=== PATIENT | female | born 1980 | race Caucasian/White ===

== ENCOUNTER → 2019-12-01 12:43 | Outpatient (CLI) | payer BC | END | disposition home or self-care (01) | LOC: D.US 12:43 | PROVIDERS: ATTEND Family Medicine | DX: E04.1 Nontoxic single thyroid nodule (principal) ==

== ENCOUNTER 2020-01-18 13:43 | Observation (INO) | payer BC ==
[~2020-01-18] VITALS: Ht 175.3 cm; Wt 127.3 kg
[2020-02-11] MEDS ORDERED: FENOFIBRATE160 MG PO (10:06)
[2020-02-11] MEDS ORDERED: TOPROL XL200 MG PO (10:08)
--- NOTE | 2020-02-11 13:39 | HP ---
PATIENT: INEZ BURCIAGA MEDICAL RECORD: [id number] ACCOUNT: [id number] LOCATION:[facility] : 76 ADMISSION DATE: 02/14/20 PCP: LALA IZQUIERDO MD HISTORY AND PHYSICAL EXAMINATION HISTORY OF PRESENT ILLNESS: Ms. Burciaga is a 39-year-old female with a solitary right sided 6 cm thyroid nodule. She has been admitted for a total thyroidectomy. PAST MEDICAL HISTORY: Includes hypertension. PAST SURGICAL HISTORY: Includes C-sections, bladder surgery. CURRENT MEDICATIONS: Metoprolol, fenofibrate. ALLERGIES: SULFA. PHYSICAL EXAMINATION: GENERAL: She is healthy-appearing. FACE: Normal, symmetric, no lesions. EYES: Conjunctivae normal. EARS: Canals and TMs are normal. NOSE: No mass, polyps or drainage. ORAL CAVITY AND OROPHARYNX: Tongue protrudes in midline. Pharynx normal. NECK: She has a large smooth right thyroid nodule 6 cm. CHEST: Clear. CARDIOVASCULAR: Regular rate and rhythm, no murmur. EXTREMITIES: Normal. LABORATORY AND DIAGNOSTIC DATA: Ultrasound shows 6 cm solitary thyroid nodule. Her TSH is 1.26. IMPRESSION: Dominant right thyroid nodule. PLAN: Total thyroidectomy. TRANSINT:[id number] Voice Confirmation ID: [id number] DOCUMENT ID: [id number] BAR KNOTT MD at 1339 CC: [id number] DICTATION DATE: 02/10/20 1101 ENVIRONMENTAL SERVICES AIDE: 02/10/20 1303 [id number] [place] [id number]
[2020-02-14] VITALS (12 sets, daily range): BP systolic 123–145; BP diastolic 68–86; Ht 175.3 cm; Wt 127.3 kg
[2020-02-14 09:37] LABS: HEMATOCRIT 39.2 % (36.0-48.0); HEMOGLOBIN 12.4 g/dL (12-16); MCH 26.8 pg (26.0-34.0); MCHC 31.6 g/dL (31.0-37.0); MCV 84.8 fL (80.0-100.0); MEAN PLATELET VOLUME 9.3 fL (7.4-10.4); RBC 4.62 10x6/uL (4.00-5.40); WBC 10.9 10x3/uL (4.8-10.8)
[2020-02-14 10:26] LABS: HCG URINE NEGATIVE (NEGATIVE)
--- NOTE | 2020-02-14 17:43 | NUR ---
PT ARRIVEXD TO FLOOR VIA BED FROM SX. ALERT AND ORIENTED. SPOUSE AT BEDSIDE. RIGHT FA 20G IV SL. O2 AT 2L VIA NC. VS STABLE. THROAT INCISION INTACT WITH STERI STRIPS AND RAFI DRAIN HAS MINIMAL BLOODY DRAINAGE. PT STATES SHE HAS NO FURTHER NEEDS AT THIS TIME. BED LOW. CL IN REACH. RN TO DO ADMISSION ASSESSMENT. MED REC AND HX COMPLETED.
[2020-02-15 00:51] VITALS: BP 104/54
[2020-02-15 06:16] VITALS: BP 96/49
[2020-02-15 08:45] VITALS: BP 120/71
--- NOTE | 2020-02-15 11:13 | NUR ---
DID NOT GIVE MEDICATIONS, PT TOOK HERS FROM HOME. ASSESSMENT PERFORMED AT THIS TIME. PT IS UPRIGHT IN BED. DENIES ANY NEEDS. BED IN LOWEST POSITION, BED RAILS X2, CALL LIGHT WITHIN REACH. WILL CONTINUE TO MONITOR.
[2020-02-15 12:53] VITALS: BP 139/80
--- NOTE | 2020-02-15 14:00 | NUR ---
PT SIGNED ALL NECESSARY PAPERWORK. IV REMOVED FROM RIGHT FOREARM, CATHER TIP INTACT. 2X2'S AND TAPE PLACED OVER SITE. TOELRATED WELL. PT IS ESCORTED OUT BY SPOUSE. DECLINED NEEDING A WHEEL CHAIR.
--- NOTE | 2020-02-15 15:55 | OP ---
PATIENT NAME: INEZ WILLIAM MEDICAL RECORD: [id number] :76 LOCATION:[id number] ADMISSION DATE:02/14/20 SURGEON: CORTEZ KNOTT MD DATE OF OPERATION: 02/14/2020 PREOPERATIVE DIAGNOSIS: Solitary right thyroid nodule greater than 6 cm in size. POSTOPERATIVE DIAGNOSIS: Solitary right thyroid nodule greater than 6 cm in size. PROCEDURE: Total thyroidectomy. SURGEON: Cortez Knott MD ANESTHESIA: General orotracheal. BLOOD LOSS: Less than 20 cc. SPECIMENS: Right and left thyroid lobe separately. DRAINS: Round RAFI through a separate stab incision inferior to the wound. COMPLICATIONS: None. DISPOSITION: Recovery stable. FROZEN SECTION: Follicular neoplasm. PROCEDURE NOTE: She was brought to the operating room and placed in supine position, sedated and intubated by anesthesia. She was positioned, prepped and draped in usual fashion for thyroidectomy. The skin was injected with a total of 0.5 mL of 1% lidocaine with 1:100,000 epinephrine. A horizontal incision was made with a 15 blade roughly alf between cricoid and the sternum. This was taken down with a cautery through the platysma. Flaps were elevated superiorly and inferiorly, 4 separate 2-0 silk stick ties were placed at each corner of the incision. The strap muscles were in the midline, divided superiorly and inferiorly. The thyroid was exposed really large right thyroid nodule. It was a solitary nodule. It was displacing in the trachea slightly to the left as well as the strap musculature. The straps were dissected off. [employer] retractors were used inferiorly and superiorly to expose a large thyroid nodule. Fascia was dissected off inferiorly. The gland was dissected out of some small veins and fascia were divided. Some small clip form block maker was used as well as some 3-0 silk ties. The inferior parathyroid was identified and preserved. Recurrent laryngeal nerve was identified and preserved. The nodule was reflected superiorly somewhat and then went up bilaterally, dividing the middle thyroid vein and tied with silk ties and then the superior pole was let down dissecting out in the pedicle and multiple clips and 2-0 ties were used and this allowed rotation of the gland medially over the trachea and preserve the superior parathyroid gland and dissected towards the trachea through Hinojosa's ligament, preserving both parathyroids recurrent laryngeal nerve and to the isthmus, which was quite small actually. Then that was tied off with a 2-0 silk tie and the specimen was sent for frozen, returned follicular neoplasm. It was large and solitary in nature. The total thyroidectomy was performed as planned. The left thyroid was exposed easily dissecting the straps off. It was quite OPERATIVE REPORT [id number] INEZ WILLIAM small, dissected inferiorly. I preserve the parathyroid gland and superiorly took down the superior pedicle very easily with just a single tie and dissected the superior parathyroid away easily as well, reflected the gland medially, identified the recurrent laryngeal nerve and dissected the gland off the right at Hinojosa's ligament there and over across to the midline, taking the isthmus as well. This was sent for permanent only. The wound was irrigated clean. There was no bleeding at all. A drain was placed through a separate stab incision inferior to the wound. The strap muscles were loosely approximated with interrupted 3-0 Vicryl. The platysma layer was closed with interrupted 3-0 Vicryl. The head was lifted and the skin was closed with a running 5-0 subcuticular Prolene. Steri-Strips and Mastisol were applied. A 2-0 nylon drain stitch was applied. She was awakened, extubated, and transported to recovery in good condition. Normal voice. TRANSINT:[id number] Voice Confirmation ID: [id number] DOCUMENT ID: [id number] CORTEZ KNOTT MD at 1555 CC: [id number] DICTATION DATE: 02/14/20 1726 FIELD TRAINING MANAGER: 02/15/20 0323 [facility] [id number] [place] [address]
[2020-02-15] MEDS ORDERED: HYDROCODON-ACE1 EAC7 PO (16:06)
== END 2020-02-15 16:00 | disposition home or self-care (01) ==
LOC: D.SDCHOLD 02-14 08:45 → D.MS 02-14 09:09 → D.SDCHOLD 02-14 09:09 → OBSVTIME 02-14 09:09 → D.SDCHOLD 02-14 09:50 → D.MS 02-14 17:35
PROVIDERS: Anesthesiology; ADMIT Otolaryngology; ATTEND Otolaryngology
DX: E04.1 Nontoxic single thyroid nodule (principal); I10 Essential (primary) hypertension